=== PATIENT | female | born 1965 | race Caucasian/White ===

== ENCOUNTER 2021-09-08 00:05 | Emergency (ER) | payer SELFPAY ==
[2021-09-08] MEDS ORDERED: Lorazepam 1 MG TAB ONE (02:31)
== END 2021-09-08 02:48 | disposition home or self-care (01) ==
LOC: ERS 00:05
DX: F41.9 Anxiety disorder, unspecified (principal); Z79.899 Other long term (current) drug therapy
CPT/HCPCS: 99283

== ENCOUNTER 2022-10-16 13:21 | Emergency (ER) | payer SELFPAY ==
[2022-10-16] MEDS ORDERED: Diazepam 5 MG TAB ONE (13:50)
[2022-10-16] MEDS ORDERED: Lidocaine 1% w/Epinephrine 1:100K 20 ML VIAL ONE (14:05)
== END 2022-10-16 15:12 | disposition home or self-care (01) ==
LOC: ERS 13:21
DX: N76.4 Abscess of vulva (principal); N75.0 Cyst of Bartholin's gland
CPT/HCPCS: 56420